=== PATIENT | male | born 1950 | race Hispanic/Latino ===

== ENCOUNTER → 2023-07-23 | Outpatient (CLI) | payer OTHER | END | disposition home or self-care (01) | LOC: SHCH 08:40 | PROVIDERS: ATTEND Internal Medicine Cardiovascular Disease | DX: I35.0 Nonrheumatic aortic (valve) stenosis (principal); I51.7 Cardiomegaly | CPT/HCPCS: 93306 ==

== ENCOUNTER → 2024-03-31 | Outpatient (CLI) | payer OTHER ==
--- NOTE | 2024-04-03 07:46 | HMCSR ---
APPROVED REPORT Laterality: Bilateral Indications g45.9 Doppler Spectral Velocity Analysis PSV / EDVPSV / EDV ECA (R) 154 / cm/sECA (L) 143 / cm/s dICA (R) 85 / 27 cm/sdICA (L) 98 / 22 cm/s Coni (R) 77 / 25 cm/smICA (L) 112 / 26 cm/s pICA (R) 89 / 19 cm/spICA (L) 143 / 28 cm/s dCCA (R) 113 / 15 cm/sdCCA (L) 93 / 11 cm/s mCCA (R) 97 / 18 cm/smCCA (L) 137 / 25 cm/s pCCA (R) 70 / 10 cm/spCCA (L) 123 / 25 cm/s Vert (R) 39 / cm/sVert (L) 42 / cm/s Subl. (R) 79 / cm/sSubl. (L) 111 / cm/s ICA/CCA 0.79ICA/CCA 1.04 Technologist Impression Mild heterogenous plaque noted in the bilateral carotids, without hemodynamic significance. Bilateral vertebral arteries appear antegrade. Left ICA velocities are noted to be >125 cm/sec. Conclusion Less than 50% stenosis in the LICA. Conclusion Less than 50% stenosis in the LICA.
== END | disposition home or self-care (01) ==
LOC: SHCH 07:40
PROVIDERS: ATTEND Internal Medicine Cardiovascular Disease
DX: I65.23 Occlusion and stenosis of bilateral carotid arteries (principal)
CPT/HCPCS: 93880